=== PATIENT | female | born 1940 | race Caucasian/White ===

== ENCOUNTER 2017-12-14 10:50 | Day surgery (SDC) | payer SELFPAY, OTHER ==
[~2017-12-14] VITALS: Ht 149.9 cm; Wt 82.7 kg
[~2017-12-14 10:50] MED LIST: ABAT250V; ATEN50 PO; CELE200 PO; D3-20002000 UNIT PO; DIBU30TO PR; HYDCHL12.5 PO; HYDCOR2.5C PR; Hydroxychloroq200 MG PO; IRBESARTAN300 MG PO; K-Dur20 MEQ PO; LANS30EC PO; LEVSOD100 PO; MELO7.5 PO; METO50ER PO; Macrobid 100 M100 MG PO; Miralax17 GM PO; PANT40 PO; PRED5 PO; Percocet 10-321 EACH PO; Zofran Odt4 MG SL
[2017-12-14] MEDS ORDERED: ATEN50 (11:17)
[2017-12-14] MEDS ORDERED: POTA10T (11:17)
== END 2017-12-14 13:05 | disposition home or self-care (01) ==
LOC: ORSCSDS 10:50
PROVIDERS: Internal Medicine Gastroenterology
PROC: 0DB68ZX Excision of Stomach, Via Natural or Artificial Opening Endoscopic, Diagnostic (ICD-10-PCS; principal; 2017-12-14 12:00)
PROC: 0DB98ZX Excision of Duodenum, Via Natural or Artificial Opening Endoscopic, Diagnostic (ICD-10-PCS; principal; 2017-12-14 12:00)
DX: R63.4 Abnormal weight loss (principal); K31.7 Polyp of stomach and duodenum; K29.50 Unspecified chronic gastritis without bleeding; R11.0 Nausea; I10 Essential (primary) hypertension; E11.9 Type 2 diabetes mellitus without complications; G47.33 Obstructive sleep apnea (adult) (pediatric); M06.9 Rheumatoid arthritis, unspecified; Z79.899 Other long term (current) drug therapy
CPT/HCPCS: 82947; 88305; 88342; J2250; J3010; J7120

== ENCOUNTER 2021-04-25 07:56 | Inpatient (IN) | payer OTHER ==
[~2021-04-25] VITALS: Ht 147.3 cm; Wt 68.0 kg
[~2021-04-25 07:56] MED LIST changes: +ALEN70 PO; +ATEN25 PO; -HYDCHL12.5 PO; +HYDCHL25 PO; +POTA10T PO
[2021-04-25 08:58] LABS: BASOPHILS ABSOLUTE AUTO 0.03 K/mm3 (0.00-0.23); BASOPHILS PERCENT AUTO 0 % (0-2); EOSINOPHILS ABSOLUTE AUTO 0.05 K/mm3 (0.00-0.68); EOSINOPHILS PERCENT AUTO 1 % (0-6); Hematocrit 36.9 % (33.0-51.0); Hemoglobin 13.1 g/dL (11.5-16.0); IMMATURE GRAN ABSOLUTE AUTO 0.08 K/mm3 (0.00-0.10); IMMATURE GRAN PERCENT AUTO 1 % (0-1); LYMPHOCYTES ABSOLUTE AUTO 1.41 K/mm3 (0.84-5.20); LYMPHOCYTES PERCENT AUTO 14 % (21-46); MONOCYTES ABSOLUTE AUTO 0.75 K/mm3 (0.16-1.47); MONOCYTES PERCENT AUTO 7 % (4-13); Mean Corpuscular HGB 32.3 pg (26.0-34.0); Mean Corpuscular HGB Conc 35.5 g/dL (31.5-36.5); Mean Corpuscular Volume 91 fL (80-100); Mean Platelet Volume 8.9 fL (9.1-12.4); NEUTROPHILS PERCENT AUTO 77 % (41-73); Platelet Count 182 K/mm3 (150-400); RDW Coefficient Variation 11.9 % (11.7-14.2); RDW Standard Deviation 39.9 fL (35.1-46.3); Red Blood Cell Count 4.05 M/mm3 (3.80-5.20); White Blood Cell Count 10.12 K/mm3 (4.00-11.30)
[2021-04-25 09:27] LABS: Albumin, Blood 3.3 g/dL (3.4-5.0); Bilirubin, Total 0.7 mg/dL (0.1-1.0); Bun/Creatinine Ratio 17.6 (12.0-20.0); Calcium, Blood 9.3 mg/dL (8.5-10.1); Creatinine, Blood 1.08 mg/dL (0.40-1.00); Globulin, Blood 3.2 g/dL (2.2-4.0); Potassium, Blood 3.3 mmol/L (3.5-5.5); Total Protein, Blood 6.5 g/dL (6.4-8.2)
[2021-04-25 10:38] LABS: SARS-Cov-2 (COVID-19) PCR, MMC NEGATIVE (NEGATIVE)
[2021-04-25 11:02] LABS: International Normalized Ratio 1.09; Prothrombin Time Results 11.4 Sec (9.7-11.5)
--- NOTE | 2021-04-25 12:29 | NUR ---
PATIENT BELONGINGS INCLUDING RINGS, NECKLACES, A WATCH, HER CLOTHES AND PILLOW TAKEN TO HER ROOM ON SURGICAL FLOOR BY NJ OVIEDO.
--- NOTE | 2021-04-25 12:31 | NUR ---
REPORT TO NJ OVIEDO
--- NOTE | 2021-04-25 13:22 | NUR ---
ASSUMED CARE OF PT. PT INTO SDS FROM ER VIA BED TAKEN FROM SURG ROOM. History, Chart, Medications and Allergies reviewed before start of procedure.Patient confirms NPO status and agrees with scheduled surgery. Lungs clear T/O to Auscultation.OPEN SKIN TEARS AND BRUISING NOTED ON BOTH ELBOWS, PT REPORTS IT'S FROM "TRYING TO CATCH MYSELF".
--- NOTE | 2021-04-25 17:05 | NUR ---
1615 ARRIVED TO ROOM VIA BED. PT ALERT, ORIENTED AND COOPERATIVE. PT COUGHED UP THICK CLEAR SECRETIONS, DENIES NAUSEA OR PAIN. LEFT AQUACELL HIP DRESSINGS X2 CLEAN DRY AND INTACT. PT WITH MULTIPLE BRUISES TO BILAT ARMS. KERLIX DRESSING TO RIGHT ELBOW WITH 50 CENT PIECE SIZED BLOODY DRAINAGE
--- NOTE | 2021-04-25 17:51 | NUR ---
pt denies need for pain medication, pt reports "sore all over after falling" rates pain 2/10. left hip dressing clean and dry. ice pack in place to left hip. pt jazmyn small amount regular diet without nausea
[2021-04-26 04:25] LABS: BASOPHILS ABSOLUTE AUTO 0.01 K/mm3 (0.00-0.23); BASOPHILS PERCENT AUTO 0 % (0-2); EOSINOPHILS PERCENT AUTO 0 % (0-6); Hematocrit 35.1 % (33.0-51.0); Hemoglobin 12.3 g/dL (11.5-16.0); IMMATURE GRAN ABSOLUTE AUTO 0.03 K/mm3 (0.00-0.10); IMMATURE GRAN PERCENT AUTO 0 % (0-1); LYMPHOCYTES ABSOLUTE AUTO 0.82 K/mm3 (0.84-5.20); LYMPHOCYTES PERCENT AUTO 8 % (21-46); MONOCYTES PERCENT AUTO 8 % (4-13); Mean Corpuscular HGB 32.4 pg (26.0-34.0); Mean Corpuscular Volume 92 fL (80-100); NEUTROPHILS ABSOLUTE AUTO 8.14 K/mm3 (1.96-9.15); NEUTROPHILS PERCENT AUTO 83 % (41-73); Platelet Count 157 K/mm3 (150-400); RDW Standard Deviation 40.8 fL (35.1-46.3)
[2021-04-26 04:43] LABS: Anion Gap 6 mmol/L (6-16); Blood Urea Nitrogen 17 mg/dL (8-24); Bun/Creatinine Ratio 20.5 (12.0-20.0); CO2, Blood 26 mmol/L (21-32); Calcium, Blood 9.1 mg/dL (8.5-10.1); Chloride, Blood 101 mmol/L (98-108); Creatinine, Blood 0.83 mg/dL (0.40-1.00); Glomerular Filtration Rate >60 (60-); Glucose, Blood 112 mg/dL (70-99); Potassium, Blood 4.1 mmol/L (3.5-5.5); Sodium, Blood 133 mmol/L (136-145)
--- NOTE | 2021-04-26 05:02 | NUR ---
SHIFT SUMMARY POD1 L HIP PINNING, TTWB, PAIN MANAGED PER EMAR, TOLERATING DIET, BM THIS SHIFT, RUVALCABA IN PLACE DRAINING TO GRAVITY. NO ACUTE EVENTS THIS SHIFT. CALL LIGHT IN REACH, WILL CTM AND REPORT TO DAY RN.
--- NOTE | 2021-04-26 14:55 | NUR ---
SKIN TEAR TO R ELBOW CHANGED DRESSING TO R ELBOW. PLACED MEPITEL DRESSING AND WRAPPED W/KERLEX. PT TOLERATED WELL.
--- NOTE | 2021-04-26 15:29 | NUR ---
ANXIOUS PT REPORTED TO DR AND RN FEELING ANXIOUS. AFTER DISCUSSING W/, PROVIDED COLORING SHEETS FOR PT'S DISTRACTION. PT STATES STILL FEELING ANXIETY, REPORTED DID NOT SLEEP LAST NIGHT AND HAS NOT BEEN ABLE TO SLEEP THIS SHIFT. DISCUSSED W/DR MACIEL, OBTAINED ORDERS FOR MELATONIN AT BEDTIME.
--- NOTE | 2021-04-26 18:59 | NUR ---
summary PT WORKED W/THERAPY AND SAT UP IN CHAIR FOR PART OF THE SHIFT TODAY. ANXIOUS T/O DAY. PROVIDED COLORING PAGES FOR DISTRACTION. PT STATED DID NOT FEEL LIKE SLEPT LAST NIGHT, DID NOT SLEEP AT ALL DURING SHIFT. ORDERS OBTAINED FOR MELATONIN AT . CBG STABLE. VSS. MEDICATED PER ORDERS FOR PAIN. CALL LIGHT IN REACH.
[2021-04-26] MEDS ORDERED: DIPATR PO (21:17)
[2021-04-26] MEDS ORDERED: LOSARTAN POTAS100 M1 PO (21:21)
--- NOTE | 2021-04-27 02:58 | NUR ---
PT BP 154/93,PULSE 116 DIAPHORETIC,PTS FACE HAS BEEN FLUSHED T/O SHIFT. 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 I CALLED DR GONZALEZ AND ADVISED OF ABOVE.ALSO ADVISED THAT I UPDATED PTS HOME MED LIST AND SAFEWAY DOCS NOTE PT TAKES COZAAR,AVAPRO WHICH ARE NOT ORDERED.ALSO ADVISED PT WAS ORDERED PREDNISONE 5 MG PO BID,BUT PT RECORDS NOTE IT TO BE A QD ORDER.HELD LAST NIGHTS DOSE.NO NEW ORDERS WERE RECEIVED.
[2021-04-27 04:27] LABS: BASOPHILS ABSOLUTE AUTO 0.02 K/mm3 (0.00-0.23); BASOPHILS PERCENT AUTO 0 % (0-2); EOSINOPHILS ABSOLUTE AUTO 0.02 K/mm3 (0.00-0.68); EOSINOPHILS PERCENT AUTO 0 % (0-6); Hematocrit 35.8 % (33.0-51.0); Hemoglobin 12.7 g/dL (11.5-16.0); IMMATURE GRAN ABSOLUTE AUTO 0.06 K/mm3 (0.00-0.10); IMMATURE GRAN PERCENT AUTO 1 % (0-1); LYMPHOCYTES ABSOLUTE AUTO 1.31 K/mm3 (0.84-5.20); LYMPHOCYTES PERCENT AUTO 12 % (21-46); MONOCYTES PERCENT AUTO 9 % (4-13); Mean Corpuscular HGB 32.5 pg (26.0-34.0); Mean Corpuscular HGB Conc 35.5 g/dL (31.5-36.5); Mean Corpuscular Volume 92 fL (80-100); Mean Platelet Volume 9.1 fL (9.1-12.4); NEUTROPHILS ABSOLUTE AUTO 8.91 K/mm3 (1.96-9.15); NEUTROPHILS PERCENT AUTO 79 % (41-73); Platelet Count 158 K/mm3 (150-400); RDW Coefficient Variation 12.2 % (11.7-14.2); RDW Standard Deviation 40.8 fL (35.1-46.3); Red Blood Cell Count 3.91 M/mm3 (3.80-5.20); White Blood Cell Count 11.32 K/mm3 (4.00-11.30)
--- NOTE | 2021-04-27 10:28 | NUR ---
RAOUL PT RAOUL W/VS THIS AM. DISCUSSED W/DR MACIEL. ORDERS OBTAINED. ADMINISTERED ATENOLOL PER ORDERS.
--- NOTE | 2021-04-27 14:22 | NUR ---
VISITING W/SON AND DAUGHTER. GAVE PT'S JEWELRY TO DAUGHTER TO TAKE HOME. PT HAS GLASSES ON BEDSIDE TABLE.
--- NOTE | 2021-04-27 15:19 | NUR ---
CONFUSION PT APPEARS TO BE SLIGHTLY CONFUSED THIS AFTERNOON. TOLD FAMILY "THIS ISN'T MY ROOM". REORIENTED PT TO PLACE. AWARE OF SITUATION. USING CALL LIGHT APPROPRIATELY.
--- NOTE | 2021-04-27 17:45 | NUR ---
summary NO ACUTE CHANGES T/O SHIFT. PT WAS CONFUSED AT ONE POINT, WHEN FAMILY WAS AT BEDSIDE, PT DID NOT THINK SHE WAS IN HER ROOM. REORIENTED TO SITUATION. PT USING CALL LIGHT APPROPRIATELY. DRESSING TO L HIP CDI. RUVALCABA CATH DC'D THIS AFTERNOON; PT HAS VOIDED. CALL LIGHT IN REACH.
--- NOTE | 2021-04-28 07:40 | NUR ---
SUMMARY PT WITH CONFUSION, BUT REPORTED FEELING BETTER LAST NIGHT.VOIDING POST RUVALCABA DC.
--- NOTE | 2021-04-28 17:12 | NUR ---
SHIFT SUMMARY PT A&OX2-3, OCC CONFUSED/NAVAJO, CBG CNI. POD3 L HIP NAILING, 2 AQUACEL CDI. PAIN MANAGEABLE W/O NARCOTIC. ANNALISE PO. VOIDING/INCONTINENT/ATTENDS ON. STAND PIVOT TO CHAIR/BSC/BED, W/FWW-GB AND TTWB, 2 PP ASSIST FOR SAFETY. WILL REPORT TO ONCOMING DALE OVIEDO.
--- NOTE | 2021-04-29 06:27 | NUR ---
PT IS A/OX1, TO SELF ONLY. CREEK. IS CONFUSED, BUT PLEASANT AND COOPERATIVE. EASILY RE-DIRECTABLE. DOES NOT REMEMBER TO USE CALL LIGHT. DID SET BED ALARM OFF A FEW TIMES DURING THE NOC TRYING TO GET OOB. PT IS POD #4 FOR LT HIP PINNING. LT HIP W/2 AQUACEL DRSGS, BOTH CDI. TTWB TO LLE. WEARING ADULT DISPOSABLE BRIEFS FOR B/B INCONTINENCE. DENIED ANY N/V. ROOM AIR. FAINT CRACKLES NOTED TO BASES.
--- NOTE | 2021-04-29 14:23 | NUR ---
04/29/21 1423 Marla Escobedo VERIFICATIONS: EDIT CHART.
[2021-04-29 15:39] LABS: Influenza A, PCR NEGATIVE (NEGATIVE); Influenza B, PCR NEGATIVE (NEGATIVE); Resp Syncytial Virus, PCR NEGATIVE (NEGATIVE); SARS-Cov-2 (COVID-19) PCR, MMC NEGATIVE (NEGATIVE)
--- NOTE | 2021-04-29 16:57 | NUR ---
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 ALEXEI STEIN'Kobi.
== END 2021-04-29 17:00 | DRG 482 ==
LOC: ER 07:56 → SURS 10:29
PROVIDERS: Internal Medicine; Nurse Practitioner Acute Care; Orthopaedic Surgery; Physician Assistant; ADMIT Internal Medicine
PROC: 0QS936Z Reposition Left Femoral Shaft with Intramedullary Internal Fixation Device, Percutaneous Approach (ICD-10-PCS; principal; 2021-04-25 14:30)
DX: S72.142A Displaced intertrochanteric fracture of left femur, initial encounter for closed fracture (principal); Z66 Do not resuscitate; Z20.822 Contact with and (suspected) exposure to COVID-19; M06.9 Rheumatoid arthritis, unspecified; I10 Essential (primary) hypertension; E11.9 Type 2 diabetes mellitus without complications; M81.0 Age-related osteoporosis without current pathological fracture; K21.9 Gastro-esophageal reflux disease without esophagitis; E03.9 Hypothyroidism, unspecified; F41.9 Anxiety disorder, unspecified; Z90.710 Acquired absence of both cervix and uterus; Z90.89 Acquired absence of other organs; Z98.890 Other specified postprocedural states; Z79.52 Long term (current) use of systemic steroids; Z79.899 Other long term (current) drug therapy; W18.39XA Other fall on same level, initial encounter
CPT/HCPCS: 0241U; 36415; 51702; 73502; 73700; 80048; 80053; 82947; 85025; 85610; 85730; 93005; 93010; 94760; 96374; 96376; 97110; 97110-CQ; 97161; 97165; 97530; 97530-CQ; 97535; 99285-25; A9270; C1713; C9113; J0690; J1100; J1170; J1650; J2370; J2405; J2704; J3010; J7120; J7512; U0004

== ENCOUNTER 2021-08-03 12:56 | Emergency (ER) | payer OTHER ==
[~2021-08-03] VITALS: Ht 149.9 cm; Wt 68.0 kg
[~2021-08-03 12:56] MED LIST changes: +DIPATR PO; +LOSARTAN POTAS100 M1 PO
[2021-08-03 14:21] LABS: BASOPHILS ABSOLUTE AUTO 0.03 K/mm3 (0.00-0.23); BASOPHILS PERCENT AUTO 0 % (0-2); EOSINOPHILS ABSOLUTE AUTO 0.06 K/mm3 (0.00-0.68); EOSINOPHILS PERCENT AUTO 1 % (0-6); Hematocrit 44.6 % (33.0-51.0); Hemoglobin 15.3 g/dL (11.5-16.0); IMMATURE GRAN ABSOLUTE AUTO 0.04 K/mm3 (0.00-0.10); IMMATURE GRAN PERCENT AUTO 0 % (0-1); LYMPHOCYTES ABSOLUTE AUTO 1.92 K/mm3 (0.84-5.20); LYMPHOCYTES PERCENT AUTO 20 % (21-46); MONOCYTES ABSOLUTE AUTO 0.82 K/mm3 (0.16-1.47); MONOCYTES PERCENT AUTO 9 % (4-13); Mean Corpuscular HGB Conc 34.3 g/dL (31.5-36.5); Mean Corpuscular Volume 93 fL (80-100); Mean Platelet Volume 9.4 fL (9.1-12.4); NEUTROPHILS ABSOLUTE AUTO 6.77 K/mm3 (1.96-9.15); NEUTROPHILS PERCENT AUTO 70 % (41-73); Platelet Count 262 K/mm3 (150-400); RDW Coefficient Variation 11.7 % (11.7-14.2); RDW Standard Deviation 40.4 fL (35.1-46.3); Red Blood Cell Count 4.78 M/mm3 (3.80-5.20); White Blood Cell Count 9.64 K/mm3 (4.00-11.30)
[2021-08-03 14:36] LABS: Albumin, Blood 3.3 g/dL (3.4-5.0); Albumin/Globulin Ratio 0.9 (0.8-1.8); Bilirubin, Total 0.6 mg/dL (0.1-1.0); Calcium, Blood 10.1 mg/dL (8.5-10.1); Creatinine, Blood 1.23 mg/dL (0.40-1.00); Globulin, Blood 3.5 g/dL (2.2-4.0); Potassium, Blood 3.3 mmol/L (3.5-5.5); Total Protein, Blood 6.8 g/dL (6.4-8.2)
[2021-08-03 14:37] LABS: Source, Urine Clean Catch
[2021-08-03 15:00] LABS: Appearance, Urine Clear (Clear); Bilirubin, Urine Neg (Neg); Blood, Urine 1+ (Neg); Color, Urine Yellow (P-Yellow); Glucose Qualitative, Urine Neg (Neg); Ketones, Urine 1+ (Neg); Leukocyte Esterase, Urine Neg (Neg); Nitrite, Urine Neg (Neg); Protein, Urine 1+ (Neg); Urobilinogen, Urine NORM (Normal)
[2021-08-03] MEDS ORDERED: ONDA4ODT MM (16:33)
== END 2021-08-03 17:10 | disposition home or self-care (01) ==
LOC: ER 12:56
PROVIDERS: Physician Assistant
DX: R16.0 Hepatomegaly, not elsewhere classified (principal); E11.9 Type 2 diabetes mellitus without complications; I10 Essential (primary) hypertension; Z79.899 Other long term (current) drug therapy
CPT/HCPCS: 71045; 74177; 76705; 80053; 83880; 84484; 85025; 93005; 93010; 99285-25; J7030; Q9967

== ENCOUNTER 2021-08-13 14:55 | Emergency (ER) | payer OTHER ==
[~2021-08-13] VITALS: Ht 149.9 cm; Wt 59.0 kg
[~2021-08-13 14:55] MED LIST changes: +ONDA4ODT MM
[2021-08-13] MEDS ORDERED: ONDANSETRON ODT 4MG (15:14)
[2021-08-13 15:16] LABS: BASOPHILS ABSOLUTE AUTO 0.02 K/mm3 (0.00-0.23); BASOPHILS PERCENT AUTO 0 % (0-2); EOSINOPHILS ABSOLUTE AUTO 0.02 K/mm3 (0.00-0.68); EOSINOPHILS PERCENT AUTO 0 % (0-6); Hematocrit 44.3 % (33.0-51.0); IMMATURE GRAN ABSOLUTE AUTO 0.05 K/mm3 (0.00-0.10); IMMATURE GRAN PERCENT AUTO 1 % (0-1); LYMPHOCYTES ABSOLUTE AUTO 1.53 K/mm3 (0.84-5.20); LYMPHOCYTES PERCENT AUTO 17 % (21-46); MONOCYTES ABSOLUTE AUTO 0.57 K/mm3 (0.16-1.47); MONOCYTES PERCENT AUTO 6 % (4-13); Mean Corpuscular HGB 31.7 pg (26.0-34.0); Mean Corpuscular HGB Conc 33.9 g/dL (31.5-36.5); Mean Corpuscular Volume 94 fL (80-100); Mean Platelet Volume 9.4 fL (9.1-12.4); NEUTROPHILS PERCENT AUTO 76 % (41-73); Platelet Count 238 K/mm3 (150-400); RDW Coefficient Variation 11.8 % (11.7-14.2); Red Blood Cell Count 4.73 M/mm3 (3.80-5.20); White Blood Cell Count 8.99 K/mm3 (4.00-11.30)
[2021-08-13 15:50] LABS: Source, Urine Clean Catch
[2021-08-13 16:00] LABS: Appearance, Urine Clear (Clear); Blood, Urine Neg (Neg); Color, Urine Amber (P-Yellow); Glucose Qualitative, Urine Neg (Neg); Ketones, Urine 1+ (Neg); Leukocyte Esterase, Urine Neg (Neg); Nitrite, Urine Neg (Neg); Protein, Urine 1+ (Neg); Specific Gravity, Urine 1.015 (1.003-1.022); Urobilinogen, Urine 1+ (Normal)
[2021-08-13 16:20] LABS: Albumin, Blood 3.4 g/dL (3.4-5.0); Bilirubin, Direct 0.3 mg/dL (0.0-0.3); Bilirubin, Indirect 0.6 mg/dL (0.1-0.7); Bilirubin, Total 0.9 mg/dL (0.1-1.0); Bun/Creatinine Ratio 13.6 (12.0-20.0); Calcium, Blood 9.2 mg/dL (8.5-10.1); Creatinine, Blood 1.47 mg/dL (0.40-1.00); Globulin, Blood 3.5 g/dL (2.2-4.0); Magnesium, Blood 1.5 mg/dL (1.6-2.4); Potassium, Blood 3.8 mmol/L (3.5-5.5); Total Protein, Blood 6.9 g/dL (6.4-8.2)
[2021-08-13 16:26] LABS: Bilirubin, Urine 1+ (Neg)
[2021-08-13 16:30] LABS: Bacteria Many /hpf; Red Blood Cells, Urine Not Seen /hpf (0-2); Squamous Epithelial Cells Few /hpf (Few); White Blood Cells, Urine 0-2 /hpf (0-5)
[2021-08-13 16:31] LABS: Influenza A, PCR NEGATIVE (NEGATIVE); Influenza B, PCR NEGATIVE (NEGATIVE); Resp Syncytial Virus, PCR NEGATIVE (NEGATIVE); SARS-Cov-2 (COVID-19) PCR, MMC NEGATIVE (NEGATIVE)
[2021-08-13] MEDS ORDERED: PROM12.5S PR (18:24)
== END 2021-08-13 20:36 | disposition home or self-care (01) ==
LOC: ER 14:55
PROVIDERS: Student in an Organized Health Care Education/Training Program
DX: N17.9 Acute kidney failure, unspecified (principal); E83.42 Hypomagnesemia; R16.0 Hepatomegaly, not elsewhere classified; Z20.822 Contact with and (suspected) exposure to COVID-19; E11.9 Type 2 diabetes mellitus without complications; I10 Essential (primary) hypertension; Z79.899 Other long term (current) drug therapy
CPT/HCPCS: 0241U; 36415; 74177; 80048; 80076; 81001; 83690; 83735; 85025; 87086; 93005; 93010; 96365; 99284-25; J3475; J7030; Q9967